=== PATIENT | female | born 1955 | race Caucasian/White ===

== ENCOUNTER 2016-11-02 10:57 | Emergency (ER) | payer MEDICAID ==
[~2016-11-02] VITALS: Ht 162.6 cm; Wt 54.4 kg
[2016-11-02 11:03] VITALS: BP 125/84
[2016-11-02] MEDS ORDERED: KETOROLAC TROMETH 60MG/2ML VIAL IM ONE (12:00)
== END 2016-11-02 12:48 | disposition home or self-care (01) ==
LOC: ER 10:58
DX: G89.29 Other chronic pain (principal); M54.2 Cervicalgia
CPT/HCPCS: 96372; 99283; J1885

== ENCOUNTER 2016-12-11 10:09 | Emergency (ER) | payer MEDICAID ==
[~2016-12-11] VITALS: Ht 162.6 cm; Wt 56.2 kg
[2016-12-11 10:41] VITALS: BP 121/59
== END 2016-12-11 11:01 | disposition home or self-care (01) ==
LOC: ER 10:09
DX: G89.29 Other chronic pain (principal); M54.2 Cervicalgia; M47.892 Other spondylosis, cervical region; Z76.0 Encounter for issue of repeat prescription